=== PATIENT | male | born 1985 | race Two or more races ===

== ENCOUNTER 2022-03-07 22:48 | Emergency (ER) | payer BC, OTHER ==
[~2022-03-07] VITALS: Ht 177.8 cm; Wt 106.7 kg
[2022-03-07 23:08] LABS: Basophils # (auto) 0.1 10 ^3/uL (0-0.2); Basophils % (auto) 0.7 % (0.0-2.0); Eosinophils # (auto) 0.3 10 ^3/uL (0-0.8); Eosinophils % (auto) 3.6 % (0.0-7.0); Hematocrit 47.1 % (41.0-53.0); Hemoglobin 15.3 g/dL (13.5-17.5); Lymphocytes # (auto) 2.6 10 ^3/uL (0.4-5.4); Lymphocytes % (auto) 32.7 % (10.0-50.0); Mean Corpuscular Hemoglobin 28.3 pg (28.0-32.0); Mean Corpuscular Hgb Conc. 32.5 g/dL (32.0-36.0); Monocytes # (auto) 0.6 10 ^3/uL (0-1.3); Monocytes % (auto) 7.1 % (0.0-12.0); Neutrophils # (auto) 4.5 10 ^3/uL (1.6-8.6); Neutrophils % (auto) 55.9 % (37.0-80.0); Nucleated Red Blood Cells % 0.1 %; Red Blood Cells 5.41 10^6/uL (4.5-5.90); Red Cell Distribution Width 13.7 % (11.8-14.3); White Blood Cell 8.1 10^3/uL (4.4-10.8)
[2022-03-07 23:37] LABS: Albumin 3.6 g/dL (3.4-5.0); BUN/Creatinine Ratio 13.3; Calcium 8.7 mg/dL (8.5-10.1)
[2022-03-07 23:40] LABS: Bilirubin, Total 0.4 mg/dL (0.2-1.0)
[2022-03-08 00:13] VITALS: BP 138/89
[2022-03-08] MEDS ORDERED: OMEP-263 PO (04:28)
== END 2022-03-08 04:52 | disposition home or self-care (01) ==
LOC: ER 22:48
DX: K21.9 Gastro-esophageal reflux disease without esophagitis (principal)
CPT/HCPCS: 36415; 71046; 80053; 84484; 85025